=== PATIENT | male | born 1940 | race Two or more races ===

== ENCOUNTER 2017-08-28 08:08 | Day surgery (SDC) | payer MEDICARE, OTHER ==
[2017-08-28] VITALS (8 sets, daily range): BP systolic 114–134; BP diastolic 66–74
[~2017-08-28] VITALS: Ht 165.1 cm; Wt 72.6 kg
[2017-08-28] MEDS ORDERED: RAMIPRIL5 MG ORAL (09:01)
[2017-08-28] MEDS ORDERED: VALACYCLOVIR500 MG ORAL (09:01)
[2017-08-28] MEDS ORDERED: AMLODIPINE BESY10 MG ORAL (09:01)
--- NOTE | 2017-08-28 09:53 | Pre-Procedure Note/Attestation ---
Pre-Procedure Note/Attestation Complete Prior to Procedure Planned Procedure: not applicable Procedure Narrative: EGD AND COLONOSCOPY Indications for Procedure Pre-Operative Diagnosis: SCREENING COLON, GERD Attestation I attest that I discussed the nature of the procedure; its benefits; risks and complications; and alternatives (and the risks and benefits of such alternatives ), prior to the procedure, with the patient (or the patient's legal exhibit display representative). I attest that, if there was a reasonable possibility of needing a blood transfusion, the patient (or the patient's legal exhibit display representative) was given the [facility] standardized written summary, pursuant to the Marcus Antonieta Blood Safety Act ([place] Health and Safety Code # 1645, as amended). I attest that I re-evaluated the patient just prior to the surgery and that there has been no change in the patient's H&P, except as documented below: THEODORE WILSON Aug 28, 2017 09:53
--- NOTE | 2017-08-28 09:54 | Short Stay Surgery H&P ---
History of Present Illness History of Present Illness Chief Complaint SCREENING COLON, GERD, H/O GASTRIC ULCER HPI Doug Conde is a 77 year old male who was admitted on for Gerd/Colon Screening Patient History Allergies: Coded Allergies: No Known Allergies (Unverified , 08/27/17) PAST MEDICAL HISTORY: (1) HTN (hypertension) (2) Gastric ulcer Past Surgeries: Social History: Medication History Scheduled Amlodipine Besylate* (Amlodipine Besylate*), 10 MG ORAL DAILY, (Reported) Ramipril* (Ramipril*), 10 MG ORAL BID, (Reported) Valacyclovir Hcl* (Valtrex*), 500 MG ORAL DAILY, (Reported) Review of Systems Cardiovascular: Reports: no symptoms Respiratory: Reports: no symptoms Skeletal: Reports: no symptoms Gastrointestinal: Reports: no symptoms Genitourinary: Reports: no symptoms Neurologic: Reports: no symptoms Endocrine: Reports: no symptoms Hematologic: Reports: no symptoms Physical Exam Vital Signs Last Vital Signs Date Time Temp Pulse Resp B/P (MAP) Pulse Ox O2 Delivery O2 Flow Rate FiO2 08/28/17 09:02 98.5 76 18 127/72 98 Room Air Skin: normal HENT: normal Heart: normal Lungs: normal Abdomen: normal Extremities: normal Plan Plan of Care EGD COLONOSCOPY Final Diagnosis: Attestation Are the patient's medical conditions optimized for surgery? Attestation Response: yes THEODORE WILSON Aug 28, 2017 09:54
[2017-08-28] MEDS ORDERED: NS Irrig 1000ml ONE (10:00)
[2017-08-28] MEDS ORDERED: Propofol 200mg/20ml IV ONE (10:00)
[2017-08-28] MEDS ORDERED: Lidocaine 1% MPF 10mg/ml 5ml ONE (10:00)
--- NOTE | 2017-08-28 10:25 | Anethesia Preoperative Eval ---
Anesthesia Pre-op PMH/ROS General Date of Evaluation: Aug 28, 2017 Time of Evaluation: 10:05 Anesthesiologist: [place] ASA Score: ASA 3 Mallampati Score Class I : Soft palate, uvula, fauces, pillars visible Class II: Soft palate, uvula, fauces visible Class III: Soft palate, base of uvula visible Class IV: Only hard plate visible Mallampati Classification: Class II Surgeon: zeina Diagnosis: gerd, colon screening Surgical Procedure: egd/colonoscopy Anesthesia History: none Family History: no anesthesia problems Allergies: Coded Allergies: No Known Allergies (Unverified , 08/27/17) Medications: see eMAR Past Medical History Cardiovascular: Reports: HTN Pulmonary: Reports: asthma Anesthesia Pre-op Phys. Exam Physician Exam Last Vital Signs Date Time Temp Pulse Resp B/P (MAP) Pulse Ox O2 Delivery O2 Flow Rate FiO2 08/28/17 09:02 98.5 76 18 127/72 98 Room Air Constitutional: NAD Neurologic: CN 2-12 intact Cardiovascular: RRR Respiratory: CTA Gastrointestinal: S/NT/ND Airway Exam Mallampati Score: Class II MO: full Neck: supple TMD: 2fb ROM: limited Teeth: intact Anesthesia Pre-op A/P Studies Pre-op Studies: EKG - nsr Risk Assessment & Plan Assessment: asa3 Plan: mac Status Change Before Surgery: No Pre-Antibiotics Drug: CHASE Garcia Aug 28, 2017 10:25
[2017-08-28] MEDS ORDERED: Atropine Inj 1mg/10ml Syr IV PRN (10:30)
[2017-08-28] MEDS ORDERED: fentaNYL 100 mcg/2 mL IV PRN (10:30)
[2017-08-28] MEDS ORDERED: DiphenhydrAMINE 50mg/ml Inj IVP PRN (10:30)
[2017-08-28] MEDS ORDERED: Midazolam 2mg/2ml Inj IVP PRN (10:30)
--- NOTE | 2017-08-28 10:41 | Endoscopy Procedure Note ---
Endoscopy Procedure Note Indication for Procedure: screening colon, H/o pud Procedures Performed: EGD, colonoscopy Operative Findings/Diagnosis: 4 polyps Specimen: yes Pt Tolerated Procedure Well: Yes Estimated Blood Loss: none Anesthesiologist: cynthia Anesthesia: MAC Implant(s) used?: No 50 yrs or older w/o bx or poly: No 10yrs. F/U not recommended: Yes If not recommended, why?: Above average risk 10 yrs. F/U needed: Yes 18 years or older w/prev. colo: Yes <3yrs. since last colonoscopy: No THEODORE WILSON Aug 28, 2017 10:41
--- NOTE | 2017-08-28 12:50 | Immediate Post-Op Evaluation ---
Immediate Post-Op Evalulation Immediate Post-Op Evalulation Procedure: egd/colonoscopy Date of Evaluation: Aug 28, 2017 Time of Evaluation: 10:56 IV Fluids: 0.9ns 350ml Blood Products: none Estimated Blood Loss: negligible Blood Pressure Systolic: 131 Blood Pressure Diastolic: 71 Pulse Rate: 62 Respiratory Rate: 18 O2 Sat by Pulse Oximetry: 100 Temperature (Fahrenheit): 97.2 Pain Score (1-10): 0 Nausea: No Vomiting: No Complications none Patient Status: awake, reacts, patent Hydration Status: adequate Drug: CHASE Garcia Aug 28, 2017 12:50
--- NOTE | 2017-08-28 12:51 | 48 Hour Post Anesthesia Eval ---
Post Anesthesia Evaluation Procedure: egd/colonoscopy Date of Evaluation: Aug 28, 2017 Time of Evaluation: 10:58 Blood Pressure Systolic: 131 0: 71 Pulse Rate: 65 Respiratory Rate: 18 Temperature (Fahrenheit): 97.1 O2 Sat by Pulse Oximetry: 100 Airway: patent Nausea: No Vomiting: No Pain Intensity: 0 Hydration Status: adequate Cardiopulmonary Status: stable Mental Status/LOC: patient returned to baseline Post-Anesthesia Complications: none Follow-up care needed: N/A CHASE KING Aug 28, 2017 12:51
--- NOTE | 2017-08-28 17:15 | Procedure Note ---
DATE OF PROCEDURE: 08/28/2017 SURGEON: Celso Hernandez M.D. REFERRING PHYSICIAN: Alesha Conde M.D. PROCEDURE: Upper endoscopy with biopsy and colonoscopy with biopsy. ANESTHESIA: Per Dr. Parnell. INSTRUMENT: Olympus adult flexible upper endoscope and colonoscope. INDICATION: Screening colonoscopy evaluation and history of gastric ulceration. The procedure, risks, benefits, and possible consequences, including hemorrhage, aspiration, perforation and infection, and alternative treatments, were explained to the patient/legal guardian by Dr. Celso Hernandez and the patient/legal guardian understood and accepted these risks. PROCEDURE IN DETAIL: After informed consent was obtained and the patient was adequately sedated, Olympus upper endoscope was advanced from mouth into the second portion of the duodenum and retroflexion was performed in the stomach. The patient has evidence of partial antrectomy. A scope was easily advanced to the small intestine. No evidence of any active bleeding at this time. No ulceration. The patient had mild atrophic gastritis. Biopsy from the body of the stomach was obtained to rule out H. pylori infection. At this time, the upper endoscope was retrieved and the patient was turned over for colonoscopy. First, a rectal exam was performed, which was normal. Then, the scope was advanced from the rectum into the cecum, documented by appendiceal orifice, ileocecal valve, and right upper quadrant palpation. Quality of prep was fair. Unfortunately, in the cecum and the right colon, there was a lot of semi-solid material, which we washed as best as we could. I would say about maybe 5% of the right colon was not fully examined given this prep. The patient had total of 4 diminutive polyps, 1 in the cecum and 3 in the transverse colon, all removed with the cold biopsy forceps technique. The rest of the exam grossly within normal limits. Retroflexion of rectum showed evidence of small nonbleeding internal hemorrhoids. SUMMARY OF FINDINGS: 1. History of partial antrectomy. 2. Mild atrophic gastritis, status post biopsy. 3. Four colonic polyps removed. See above for details. 4. Internal hemorrhoids. RECOMMENDATIONS: 1. Follow up biopsies and treat accordingly. 2. If the biopsies are adenomas, we recommend repeat colonoscopy in 3 years given 4 polyps. I want to thank Dr. Alesha Conde for this kind referral. Celso Dayana Hernandez DR: ROXANNA JOB#: [id number] CC: Alesha Conde M.D.; Fax#: [phone]
--- NOTE | 2017-09-08 08:38 | Cardiology Report ---
APPROVED REPORT EKG Measurement Heart [id number] Poor data quality, interpretation may be adversely affected Atrial fibrillation Low voltage QRS ST elevation, consider inferior injury or acute infarct Abnormal ECG
== END 2017-08-28 11:40 | disposition home or self-care (01) ==
LOC: GAS 08:08
DX: Z12.11 Encounter for screening for malignant neoplasm of colon (principal); K29.40 Chronic atrophic gastritis without bleeding; K63.5 Polyp of colon; K64.8 Other hemorrhoids; Z90.3 Acquired absence of stomach [part of]; I10 Essential (primary) hypertension; K21.9 Gastro-esophageal reflux disease without esophagitis; J45.909 Unspecified asthma, uncomplicated
CPT/HCPCS: 43239; 45380; 93005; J2704; 94003; 94150